=== PATIENT | male | born 1990 | race Caucasian/White ===

== ENCOUNTER 2018-04-16 03:06 | Emergency (ER) | payer SELFPAY ==
[2018-04-16] MEDS ORDERED: Sodium Chloride 0.9% 1,000 ML IV STA (03:29)
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
[2018-04-16 03:49] LABS: BASO # 0.2 K/uL (0.0-0.2); EOS # 0.5 K/uL (0.0-0.7); EOS % 3.7 % (0.0-4.0); HEMOGLOBIN 15.2 g/dL (12.0-18.0); LYMPH # 5.1 K/uL (1.0-4.3); LYMPH % 34.2 % (20.0-40.0); MEAN CELL VOLUME 88.3 fl (80.0-94.0); MEAN CORPUSCULAR HGB CONC 33.9 g/dL (33.0-37.0); MEAN PLATELET VOLUME 9.9 fl (7.2-11.7); MONO # 0.7 K/uL (0.0-0.8); NEUT # 8.3 K/uL (1.8-7.0); NEUT % 56.1 % (50.0-75.0); NRBC % 0.2 % (0.0-0.0); RBC 5.08 Mil/uL (4.40-5.90); WHITE BLOOD COUNT 14.8 K/uL (4.8-10.8)
[2018-04-16 03:55] LABS: ALB/GLOB RATIO 1.4 (1.0-2.1); ALBUMIN 4.7 g/dL (3.5-5.0); ALT/SGPT 24 U/L (21-72); AST/SGOT 28 U/L (17-59); BLOOD UREA NITROGEN 18 mg/dl (9-20); GFR NON-AFRICAN AMERICAN > 60
[2018-04-16 06:17] VITALS: BP 108/60; PULSE 83; RESP 18; TEMP 97.7; O2SAT 100
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
== END 2018-04-16 06:20 | disposition home or self-care (01) ==
LOC: H.ER 03:06
DX: S00.83XA Contusion of other part of head, initial encounter (principal); S09.90XA Unspecified injury of head, initial encounter; Y04.0XXA Assault by unarmed brawl or fight, initial encounter; Y92.89 Other specified places as the place of occurrence of the external cause; J32.0 Chronic maxillary sinusitis
CPT/HCPCS: 70450; 70486; 72125; 80053; 85025; 96361; 96374; 99285; G0480; J2405; J7030